=== PATIENT | male | born 1960 | race Caucasian/White ===

== ENCOUNTER 2016-05-30 07:20 | Emergency (ER) | payer MEDICAID ==
[~2016-05-30] VITALS: Ht 170.2 cm; Wt 70.0 kg
[2016-05-30] MEDS ORDERED: KETOROLAC 60MG/2ML VIAL IM ONE (08:15)
[2016-05-30] MEDS ORDERED: CYCLOBENZAPRINE 10MG TABLET PO ONE (08:15)
[2016-05-30 08:37] VITALS: BP 177/103
== END 2016-05-30 09:39 | disposition home or self-care (01) ==
LOC: ER 07:35
DX: M54.2 Cervicalgia (principal); M54.6 Pain in thoracic spine; I10 Essential (primary) hypertension
CPT/HCPCS: 96372; 99283; J1885